=== PATIENT | male | born 1935 | race Caucasian/White ===

== ENCOUNTER 2018-03-23 19:23 | Inpatient (IN) | payer MEDICARE, OTHER, MEDICAID ==
[2018-03-23 20:23] LABS: ADD MAN DIFF? NO
[2018-03-23] MEDS: IPRATROPIUM (NEB) 0.5 MG/2.5 ML AMP INH (20:23)
[2018-03-23] MEDS: ALBUTEROL 0.5% (NEB) 2.5 MG/0.5 ML AMP INH (20:23)
[2018-03-23] MEDS: SODIUM CHLORIDE 0.9% 1L BAG IV* (20:25)
[2018-03-23] MEDS: LEVOFLOXACIN 750MG/D5W (PMX) 150 ML IVPB (20:25)
[2018-03-23 20:27] LABS: ABNORMAL IP MESSAGE 1; BASOPHILS % 0.1 % (0.0-2.0); HEMATOCRIT 31.3 % (42.0-52.0); HEMOGLOBIN 9.9 g/dl (14.0-18.0); LYMPHOCYTES # 0.2 10^3/ul (0.8-2.9); LYMPHOCYTES % 1.2 % (15.0-51.0); MEAN CORPUSCULAR HEMOGLOBIN 31.4 pg (29.0-33.0); MEAN CORPUSCULAR HGB CONC 31.6 g/dl (32.0-37.0); MEAN CORPUSCULAR VOLUME 99.4 fl (82.0-101.0); MEAN PLATELET VOLUME 9.1 fl (7.4-10.4); MONOCYTE # 0.5 10^3/ul (0.3-0.9); MONOCYTES % 2.6 % (0.0-11.0); NEUTROPHIL # 17.8 10^3/ul (1.6-7.5); NEUTROPHILS % 95.6 % (39.0-77.0); PLATELET COUNT 842 10^3/UL (140-415); POSITIVE DIFF @See below; RED BLOOD COUNT 3.15 10^6/ul (4.70-6.10); RED CELL DISTRIBUTION WIDTH 22.5 % (11.5-14.5)
[2018-03-23 20:27] LABS: WHITE BLOOD COUNT 18.6 10^3/ul (4.8-10.8)
[2018-03-23 20:42] LABS: LACTIC ACID 1.9 mmol/L (0.5-2.0)
[2018-03-23 20:44] LABS: ALANINE AMINOTRANSFERASE 17 IU/L (13-69); ALBUMIN 2.6 g/dl (3.3-4.9); ALBUMIN/GLOBULIN RATIO 0.86; ALKALINE PHOSPHATASE 315 IU/L (42-121); AMYLASE 151 U/L (11-123); ANION GAP 14 (8-16); ASPARTATE AMINO TRANSFERASE 24 IU/L (15-46); BILIRUBIN,INDIRECT 0.1 mg/dl (0-1.1); BILIRUBIN,TOTAL 0.1 mg/dl (0.2-1.3); BLOOD UREA NITROGEN 45 mg/dl (7-20); CALCIUM 8.5 mg/dl (8.4-10.2); CARBON DIOXIDE 31 mmol/L (21-31); CHLORIDE 90 mmol/L (97-110); CREATININE 1.53 mg/dl (0.61-1.24); GLUCOSE 112 mg/dl (70-220); LIPASE 32 U/L (23-300); POTASSIUM 3.5 mmol/L (3.5-5.1); SODIUM 131 mmol/L (135-144); TOTAL PROTEIN 5.6 g/dl (6.1-8.1)
[2018-03-23 20:50] LABS: AADO2 Arterial 286.1 mmHg (7.0-24.0); Allen Test ACCEPTAB; Arterial Base Excess 3.9 mmol/L (-3.0-3); Arterial COHb 0.4 % (0.0-3.0); Arterial Fraction of Oxyhgb 97.4 % (93.0-99.0); Arterial HCO3 26.8 mmol/L (22.0-26.0); Arterial MetHb 0.2 % (0.0-1.5); Arterial Total Hemglobin 10.5 g/dl (12.0-18.0); Arterial pCO2 34.1 mmhg (35-45); MODE MASK - SIMPLE; Site Left Radial
[2018-03-23 20:52] LABS: B-TYPE NATRIURETIC PEPTIDE 3480 PG/ML (0-450)
[2018-03-23 20:54] LABS: TROPONIN-I < 0.012 ng/ml (0.000-0.120)
[2018-03-23 21:03] LABS: INR 1.39; PROTIME 17.3 Sec (11.9-14.9); PT RATIO 1.4
[2018-03-23 21:04] LABS: PARTIAL THROMBOPLASTIN TIME 32.8 Sec (23.0-35.0)
[2018-03-23 21:23] LABS: PATH REVIEW Y
[2018-03-23] MEDS: ONDANSETRON 4 MG INJ IV (21:24)
[2018-03-23] MEDS: morphine 2 MG INJ IV (21:24)
[2018-03-23] MEDS: VANCOMYCIN 1 GM (PMX) 250 ML IVPB (21:53)
[2018-03-23 22:46] LABS: LACTIC ACID 1.7 mmol/L (0.5-2.0)
[2018-03-23] MEDS: FUROSEMIDE 40 MG INJ IV (23:19)
[2018-03-23] MEDS ORDERED: MAGNESIUM HYDROXIDE 30ML CUP PO (23:30)
[2018-03-23] MEDS ORDERED: DOCUSATE SODIUM 100 MG CAP PO (23:30)
[2018-03-23] MEDS ORDERED: BISACODYL 10 MG SUPP PR (23:30)
[2018-03-23] MEDS ORDERED: NACL 0.9% 3 ML SYG IV (23:30)
[2018-03-23] MEDS ORDERED: ACETAMINOPHEN 325 MG TAB PO ×2 (23:30)
[2018-03-23] MEDS ORDERED: ONDANSETRON 4 MG INJ IV ×2 (23:30)
[2018-03-24 00:44] LABS: LACTIC ACID 1.4 mmol/L (0.5-2.0)
[2018-03-24] MEDS ORDERED: PENDING SANTYL ORDER FOR WOUND CARE XX (05:00)
[2018-03-24 05:41] LABS: WHITE BLOOD COUNT 18.8 10^3/ul (4.8-10.8)
[2018-03-24 05:41] LABS: ABNORMAL IP MESSAGE 1; HEMATOCRIT 27.9 % (42.0-52.0); HEMOGLOBIN 8.8 g/dl (14.0-18.0); MEAN CORPUSCULAR HEMOGLOBIN 31.5 pg (29.0-33.0); MEAN CORPUSCULAR HGB CONC 31.5 g/dl (32.0-37.0); MEAN PLATELET VOLUME 9.2 fl (7.4-10.4); PLATELET COUNT 647 10^3/UL (140-415); POSITIVE DIFF @See below; RED BLOOD COUNT 2.79 10^6/ul (4.70-6.10); RED CELL DISTRIBUTION WIDTH 22.1 % (11.5-14.5)
[2018-03-24 05:44] LABS: ADD MAN DIFF? YES
[2018-03-24 06:04] LABS: ALANINE AMINOTRANSFERASE 18 IU/L (13-69); ALBUMIN 2.5 g/dl (3.3-4.9); ALKALINE PHOSPHATASE 232 IU/L (42-121); ANION GAP 13 (8-16); ASPARTATE AMINO TRANSFERASE 20 IU/L (15-46); BILIRUBIN,INDIRECT 0.1 mg/dl (0-1.1); BILIRUBIN,TOTAL 0.1 mg/dl (0.2-1.3); BLOOD UREA NITROGEN 44 mg/dl (7-20); CALCIUM 7.9 mg/dl (8.4-10.2); CARBON DIOXIDE 30 mmol/L (21-31); CHLORIDE 95 mmol/L (97-110); CREATININE 1.53 mg/dl (0.61-1.24); GLUCOSE 107 mg/dl (70-220); MAGNESIUM 1.6 mg/dl (1.7-2.5); POTASSIUM 4.2 mmol/L (3.5-5.1); SODIUM 134 mmol/L (135-144)
[2018-03-24] MEDS: FUROSEMIDE 40 MG INJ IV ×2 (06:14→18:13)
[2018-03-24] MEDS: PANTOPRAZOLE (EC) 40 MG TAB PO (06:14)
[2018-03-24 07:11] LABS: ANISOCYTOSIS 2+ (0-0); BAND NEUTROPHILS % (M) 11 % (0-4); LYMPHOCYTES #M 0.1 10^3/ul (0.8-2.9); LYMPHOCYTES % (M) 1 % (15-51); MONOCYTE #M 0.3 10^3/ul (0.3-0.9); MONOCYTES % (M) 2 % (0-11); PLATELET ESTIMATE INCREASED; POLYCHROMASIA 1+ (0-0); SEG NEUT #M 16.5 10^3/ul (1.6-7.5); SEGMENTED NEUTROPHILS (M) % 86 % (39-77); SMUDGE%M 1 % (0-0)
[2018-03-24] MEDS: HEPARIN 5,000 UNIT/0.5 ML VIAL SC (08:22)
[2018-03-24] MEDS ORDERED: NON-FORMULARY/PATIENT OWN MED (Carvedilol* 6.25 MG) PO (09:00)
[2018-03-24] MEDS ORDERED: VANCOMYCIN IV PER PHARMACY XX (11:30)
[2018-03-24] MEDS ORDERED: LEVOFLOXACIN 750MG/D5W (PMX) 150 ML IVPB ×2 (11:30→20:00)
[2018-03-24 14:18] LABS: HAAIG REFLEX REFLEX FILED
[2018-03-24 14:57] LABS: HEPATITIS B SURFACE ANTIGEN NEGATIVE (NEGATIVE)
[2018-03-24 15:15] LABS: HEPATITIS B CORE ANTIBODY NEGATIVE (NEGATIVE); HEPATITIS C VIRAL ANTIBODY NEGATIVE (NEGATIVE)
[2018-03-24] MEDS: VANCOMYCIN 1.25 GM in SOD CHLORIDE 0.9% 250 ML IVPB (18:18)
[2018-03-24] MEDS: TAMSULOSIN (SR) 0.4 MG CAP PO (21:22)
[2018-03-25 05:09] LABS: WHITE BLOOD COUNT 20.1 10^3/ul (4.8-10.8)
[2018-03-25 05:09] LABS: ABNORMAL IP MESSAGE 1; ADD MAN DIFF? NO; BASOPHILS % 0.1 % (0.0-2.0); EOSINOPHILS # 0.1 10^3/ul (0.0-0.5); EOSINOPHILS % 0.3 % (0.0-7.0); HEMATOCRIT 27.4 % (42.0-52.0); HEMOGLOBIN 8.6 g/dl (14.0-18.0); LYMPHOCYTES # 0.2 10^3/ul (0.8-2.9); LYMPHOCYTES % 1.1 % (15.0-51.0); MEAN CORPUSCULAR HEMOGLOBIN 31.4 pg (29.0-33.0); MEAN CORPUSCULAR HGB CONC 31.4 g/dl (32.0-37.0); MEAN PLATELET VOLUME 9.2 fl (7.4-10.4); MONOCYTE # 0.8 10^3/ul (0.3-0.9); MONOCYTES % 3.8 % (0.0-11.0); NEUTROPHIL # 18.9 10^3/ul (1.6-7.5); PLATELET COUNT 691 10^3/UL (140-415); POSITIVE DIFF @See below; RED BLOOD COUNT 2.74 10^6/ul (4.70-6.10); RED CELL DISTRIBUTION WIDTH 21.8 % (11.5-14.5)
[2018-03-25] MEDS: FUROSEMIDE 40 MG INJ IV (05:26)
[2018-03-25] MEDS: PANTOPRAZOLE (EC) 40 MG TAB PO (05:26)
[2018-03-25 05:36] LABS: MAGNESIUM 1.8 mg/dl (1.7-2.5)
[2018-03-25 05:36] LABS: PHOSPHORUS 5.1 mg/dl (2.5-4.9)
[2018-03-25 05:37] LABS: ANION GAP 9 (8-16)
[2018-03-25 05:38] LABS: BLOOD UREA NITROGEN 48 mg/dl (7-20); CALCIUM 7.9 mg/dl (8.4-10.2); CARBON DIOXIDE 32 mmol/L (21-31); CHLORIDE 95 mmol/L (97-110); CREATININE 1.55 mg/dl (0.61-1.24); GLUCOSE 100 mg/dl (70-220); POTASSIUM 3.4 mmol/L (3.5-5.1); SODIUM 133 mmol/L (135-144)
[2018-03-25] MEDS: FOLIC ACID 1 MG TAB PO (08:28)
[2018-03-25] MEDS: DUTASTERIDE 0.5 MG CAP PO (08:28)
[2018-03-25] MEDS: LIDOCAINE 1% (MPF) 5 ML VIAL (12:10)
[2018-03-25] MEDS: POTASSIUM CHLORIDE (SR) 20 MEQ TAB PO (12:50)
[2018-03-25] MEDS: ALBUMIN HUMAN 25% 100 ML IV (12:53)
[2018-03-25 13:25] LABS: FLD TYPE PARACENTHESIS
[2018-03-25 13:26] LABS: FLD CLARITY MILKY; FLD COLOR MILKY
[2018-03-25 13:46] LABS: FLD RBC 0 /uL; FLD WBC 74 /cmm
[2018-03-25 13:48] LABS: FLUID LD 682 U/L; FLUID TYPE PARACENTESIS FLUID
[2018-03-25 13:49] LABS: FLUID TOTAL PROTEIN < 2.0 g/dl
[2018-03-25] MEDS: MAGNESIUM SULFATE 2 GM/50 ML 50 ML IVPB (15:00)
[2018-03-25 17:57] LABS: ADD UMIC YES; UR ASCORBIC ACID NEGATIVE (NEGATIVE); UR BILIRUBIN (Dip) NEGATIVE (NEGATIVE); UR BLOOD (Dip) 1+ mg/dL (NEGATIVE); UR BUDDING YEAST FEW /HPF (NONE SEEN); UR CLARITY SLIGHTLY CLOUDY (CLEAR); UR COLOR YELLOW (YELLOW); UR GLUCOSE (Dip) NEGATIVE (NEGATIVE); UR HYALINE CAST FEW /HPF (NONE SEEN); UR KETONES (Dip) NEGATIVE (NEGATIVE); UR LEUKOCYTE ESTERASE (Dip) 3+ Leu/ul (NEGATIVE); UR NITRITE (Dip) NEGATIVE (NEGATIVE); UR RBC 4 /HPF (0-5); UR SPECIFIC GRAVITY (Dip) 1.011 (1.003-1.030); UR TOTAL PROTEIN (Dip) NEGATIVE (NEGATIVE); UR UROBILINOGEN (Dip) NEGATIVE (NEGATIVE); UR WBC 15 /HPF (0-5)
[2018-03-25] MEDS: VANCOMYCIN 1.25 GM in SOD CHLORIDE 0.9% 250 ML IVPB (18:34)
[2018-03-25] MEDS: TAMSULOSIN (SR) 0.4 MG CAP PO (20:57)
[2018-03-25] MEDS: LEVOFLOXACIN 750MG/D5W (PMX) 150 ML IVPB (20:57)
[2018-03-26 05:34] LABS: ADD MAN DIFF? NO
[2018-03-26 05:42] LABS: ABNORMAL IP MESSAGE 1; BASOPHILS % 0.1 % (0.0-2.0); EOSINOPHILS # 0.1 10^3/ul (0.0-0.5); EOSINOPHILS % 0.2 % (0.0-7.0); HEMATOCRIT 26.7 % (42.0-52.0); HEMOGLOBIN 8.3 g/dl (14.0-18.0); LYMPHOCYTES # 0.2 10^3/ul (0.8-2.9); MEAN CORPUSCULAR HEMOGLOBIN 31.2 pg (29.0-33.0); MEAN CORPUSCULAR HGB CONC 31.1 g/dl (32.0-37.0); MEAN CORPUSCULAR VOLUME 100.4 fl (82.0-101.0); MONOCYTE # 0.7 10^3/ul (0.3-0.9); NEUTROPHIL # 20.3 10^3/ul (1.6-7.5); POSITIVE DIFF @See below; RED BLOOD COUNT 2.66 10^6/ul (4.70-6.10); RED CELL DISTRIBUTION WIDTH 21.6 % (11.5-14.5)
[2018-03-26 05:42] LABS: WHITE BLOOD COUNT 21.4 10^3/ul (4.8-10.8)
[2018-03-26] MEDS: PANTOPRAZOLE (EC) 40 MG TAB PO ×2 (05:46→05:48)
[2018-03-26 05:57] LABS: PHOSPHORUS 4.2 mg/dl (2.5-4.9)
[2018-03-26 05:57] LABS: MAGNESIUM 2.2 mg/dl (1.7-2.5)
[2018-03-26 05:58] LABS: NEUTROPHILS % 95.1 % (39.0-77.0); PLATELET COUNT 696 10^3/UL (140-415)
[2018-03-26 05:59] LABS: LYMPHOCYTES % 0.7 % (15.0-51.0)
[2018-03-26 06:04] LABS: ANION GAP 10 (8-16); BLOOD UREA NITROGEN 45 mg/dl (7-20); CALCIUM 7.8 mg/dl (8.4-10.2); CARBON DIOXIDE 32 mmol/L (21-31); CHLORIDE 93 mmol/L (97-110); CREATININE 1.37 mg/dl (0.61-1.24); GLUCOSE 89 mg/dl (70-220); POTASSIUM 3.3 mmol/L (3.5-5.1); SODIUM 132 mmol/L (135-144)
[2018-03-26] MEDS: DUTASTERIDE 0.5 MG CAP PO (09:01)
[2018-03-26] MEDS: FUROSEMIDE 40 MG INJ IV ×2 (09:02→18:18)
[2018-03-26] MEDS: FOLIC ACID 1 MG TAB PO (09:02)
[2018-03-26] MEDS: POTASSIUM CHLORIDE (SR) 20 MEQ TAB PO (10:08)
[2018-03-26] MEDS: ALBUMIN HUMAN 25% 100 ML IV (17:04)
[2018-03-26] MEDS: VANCOMYCIN 1.25 GM in SOD CHLORIDE 0.9% 250 ML IVPB (18:18)
[2018-03-26] MEDS: TAMSULOSIN (SR) 0.4 MG CAP PO (21:16)
[2018-03-26] MEDS: APIXABAN 5 MG TABLET PO (21:16)
[2018-03-27 05:36] LABS: ADD MAN DIFF? NO
[2018-03-27 05:40] LABS: ABNORMAL IP MESSAGE 1; BASOPHILS % 0.1 % (0.0-2.0); EOSINOPHILS # 0.1 10^3/ul (0.0-0.5); EOSINOPHILS % 0.4 % (0.0-7.0); HEMATOCRIT 26.7 % (42.0-52.0); HEMOGLOBIN 8.3 g/dl (14.0-18.0); LYMPHOCYTES # 0.2 10^3/ul (0.8-2.9); LYMPHOCYTES % 0.9 % (15.0-51.0); MEAN CORPUSCULAR HEMOGLOBIN 31.2 pg (29.0-33.0); MEAN CORPUSCULAR HGB CONC 31.1 g/dl (32.0-37.0); MEAN CORPUSCULAR VOLUME 100.4 fl (82.0-101.0); MONOCYTE # 0.7 10^3/ul (0.3-0.9); MONOCYTES % 3.5 % (0.0-11.0); NEUTROPHIL # 18.4 10^3/ul (1.6-7.5); NEUTROPHILS % 93.4 % (39.0-77.0); PLATELET COUNT 626 10^3/UL (140-415); POSITIVE DIFF @See below; RED BLOOD COUNT 2.66 10^6/ul (4.70-6.10); RED CELL DISTRIBUTION WIDTH 21.3 % (11.5-14.5)
[2018-03-27 05:40] LABS: WHITE BLOOD COUNT 19.7 10^3/ul (4.8-10.8)
[2018-03-27] MEDS: PANTOPRAZOLE (EC) 40 MG TAB PO (05:47)
[2018-03-27 06:04] LABS: PHOSPHORUS 3.2 mg/dl (2.5-4.9)
[2018-03-27 06:05] LABS: ANION GAP 8 (8-16); BLOOD UREA NITROGEN 48 mg/dl (7-20); CALCIUM 7.9 mg/dl (8.4-10.2); CARBON DIOXIDE 34 mmol/L (21-31); CHLORIDE 97 mmol/L (97-110); CREATININE 1.29 mg/dl (0.61-1.24); GLUCOSE 99 mg/dl (70-220); POTASSIUM 3.4 mmol/L (3.5-5.1); SODIUM 136 mmol/L (135-144)
[2018-03-27 07:11] LABS: PATH REVIEW? YES
[2018-03-27] MEDS: APIXABAN 5 MG TABLET PO ×2 (08:46→20:07)
[2018-03-27] MEDS: DUTASTERIDE 0.5 MG CAP PO (08:46)
[2018-03-27] MEDS: FOLIC ACID 1 MG TAB PO (08:46)
[2018-03-27] MEDS: FUROSEMIDE 40 MG INJ IV (08:46)
[2018-03-27] MEDS: FLUCONAZOLE 200 MG (PMX) 100 ML IVPB ×2 (11:30→14:08)
[2018-03-27] MEDS: POTASSIUM CHLORIDE (SR) 20 MEQ TAB PO (11:37)
[2018-03-27] MEDS: ALBUMIN HUMAN 25% 100 ML IV (11:39)
[2018-03-27] MEDS: TAMSULOSIN (SR) 0.4 MG CAP PO (20:07)
[2018-03-27] MEDS: LEVOFLOXACIN 750MG/D5W (PMX) 150 ML IVPB (20:07)
[2018-03-28] MEDS: PANTOPRAZOLE (EC) 40 MG TAB PO (05:39)
[2018-03-28 06:12] LABS: ADD MAN DIFF? NO
[2018-03-28 06:23] LABS: WHITE BLOOD COUNT 20.2 10^3/ul (4.8-10.8)
[2018-03-28 06:23] LABS: ABNORMAL IP MESSAGE 1; BASOPHILS % 0.1 % (0.0-2.0); EOSINOPHILS # 0.1 10^3/ul (0.0-0.5); EOSINOPHILS % 0.2 % (0.0-7.0); HEMATOCRIT 26.5 % (42.0-52.0); HEMOGLOBIN 8.1 g/dl (14.0-18.0); LYMPHOCYTES # 0.3 10^3/ul (0.8-2.9); LYMPHOCYTES % 1.2 % (15.0-51.0); MEAN CORPUSCULAR HGB CONC 30.6 g/dl (32.0-37.0); MEAN CORPUSCULAR VOLUME 101.5 fl (82.0-101.0); MEAN PLATELET VOLUME 9.1 fl (7.4-10.4); MONOCYTE # 0.8 10^3/ul (0.3-0.9); MONOCYTES % 4.1 % (0.0-11.0); NEUTROPHIL # 18.8 10^3/ul (1.6-7.5); NEUTROPHILS % 92.9 % (39.0-77.0); PLATELET COUNT 581 10^3/UL (140-415); POSITIVE DIFF @See below; RED BLOOD COUNT 2.61 10^6/ul (4.70-6.10); RED CELL DISTRIBUTION WIDTH 21.2 % (11.5-14.5)
[2018-03-28 06:48] LABS: PHOSPHORUS 2.8 mg/dl (2.5-4.9)
[2018-03-28 07:09] LABS: ALANINE AMINOTRANSFERASE 18 IU/L (13-69); ALKALINE PHOSPHATASE 129 IU/L (42-121); ANION GAP 8 (8-16); ASPARTATE AMINO TRANSFERASE 22 IU/L (15-46); BILIRUBIN,INDIRECT 0.1 mg/dl (0-1.1); BILIRUBIN,TOTAL 0.1 mg/dl (0.2-1.3); BLOOD UREA NITROGEN 42 mg/dl (7-20); CARBON DIOXIDE 35 mmol/L (21-31); CHLORIDE 95 mmol/L (97-110); CREATININE 1.05 mg/dl (0.61-1.24); GLUCOSE 87 mg/dl (70-220); POTASSIUM 3.3 mmol/L (3.5-5.1); SODIUM 135 mmol/L (135-144); TOTAL PROTEIN 4.2 g/dl (6.1-8.1)
[2018-03-28] MEDS: FUROSEMIDE 40 MG INJ IV ×2 (08:52→18:16)
[2018-03-28] MEDS: FLUCONAZOLE 100 MG TAB PO (08:52)
[2018-03-28] MEDS: APIXABAN 5 MG TABLET PO ×2 (08:52→21:19)
[2018-03-28] MEDS: FOLIC ACID 1 MG TAB PO (08:52)
[2018-03-28] MEDS: DUTASTERIDE 0.5 MG CAP PO (08:52)
[2018-03-28] MEDS: POTASSIUM CHLORIDE (SR) 20 MEQ TAB PO (11:12)
[2018-03-28] MEDS ORDERED: COLLAGENASE 5 GM (UD JAR) TOP (12:00)
[2018-03-28] MEDS: ALBUMIN HUMAN 25% 100 ML IV (18:16)
[2018-03-28] MEDS: TAMSULOSIN (SR) 0.4 MG CAP PO (21:19)
[2018-03-29] MEDS: PANTOPRAZOLE (EC) 40 MG TAB PO (06:02)
[2018-03-29 06:12] LABS: ADD MAN DIFF? NO
[2018-03-29 06:16] LABS: ABNORMAL IP MESSAGE 1; BASOPHIL # 0.1 10^3/ul (0.0-0.1); BASOPHILS % 0.2 % (0.0-2.0); EOSINOPHILS # 0.1 10^3/ul (0.0-0.5); EOSINOPHILS % 0.3 % (0.0-7.0); HEMATOCRIT 28.2 % (42.0-52.0); HEMOGLOBIN 8.6 g/dl (14.0-18.0); LYMPHOCYTES # 0.3 10^3/ul (0.8-2.9); LYMPHOCYTES % 1.2 % (15.0-51.0); MEAN CORPUSCULAR HEMOGLOBIN 31.6 pg (29.0-33.0); MEAN CORPUSCULAR HGB CONC 30.5 g/dl (32.0-37.0); MEAN CORPUSCULAR VOLUME 103.7 fl (82.0-101.0); MEAN PLATELET VOLUME 8.8 fl (7.4-10.4); MONOCYTE # 0.8 10^3/ul (0.3-0.9); MONOCYTES % 3.6 % (0.0-11.0); NEUTROPHIL # 20.5 10^3/ul (1.6-7.5); NEUTROPHILS % 93.7 % (39.0-77.0); PLATELET COUNT 573 10^3/UL (140-415); POSITIVE DIFF @See below; RED BLOOD COUNT 2.72 10^6/ul (4.70-6.10); RED CELL DISTRIBUTION WIDTH 20.7 % (11.5-14.5)
[2018-03-29 06:16] LABS: WHITE BLOOD COUNT 21.9 10^3/ul (4.8-10.8)
[2018-03-29 06:37] LABS: PHOSPHORUS 3.1 mg/dl (2.5-4.9)
[2018-03-29 06:43] LABS: ALANINE AMINOTRANSFERASE 22 IU/L (13-69); ALBUMIN 2.3 g/dl (3.3-4.9); ALKALINE PHOSPHATASE 124 IU/L (42-121); ANION GAP 9 (8-16); ASPARTATE AMINO TRANSFERASE 25 IU/L (15-46); BILIRUBIN,INDIRECT 0.2 mg/dl (0-1.1); BILIRUBIN,TOTAL 0.2 mg/dl (0.2-1.3); BLOOD UREA NITROGEN 42 mg/dl (7-20); CALCIUM 8.5 mg/dl (8.4-10.2); CARBON DIOXIDE 34 mmol/L (21-31); CHLORIDE 97 mmol/L (97-110); CREATININE 0.93 mg/dl (0.61-1.24); GLUCOSE 94 mg/dl (70-220); POTASSIUM 4.2 mmol/L (3.5-5.1); SODIUM 136 mmol/L (135-144); TOTAL PROTEIN 4.6 g/dl (6.1-8.1)
[2018-03-29] MEDS: FUROSEMIDE 40 MG INJ IV (09:00)
[2018-03-29] MEDS: COLLAGENASE 5 GM (UD JAR) TOP (09:23)
[2018-03-29] MEDS: FLUCONAZOLE 100 MG TAB PO ×2 (09:24→14:23)
[2018-03-29] MEDS: APIXABAN 5 MG TABLET PO (09:24)
[2018-03-29] MEDS: DUTASTERIDE 0.5 MG CAP PO (09:24)
[2018-03-29] MEDS: FOLIC ACID 1 MG TAB PO (09:24)
[2018-03-29] MEDS: LEVOFLOXACIN 750 MG TABLET PO (09:24)
[2018-03-29] MEDS: FUROSEMIDE 40 MG TAB PO (14:23)
== END 2018-03-29 15:40 | disposition home health service (06) | DRG 814 ==
LOC: 6WM 23:18 → E/R 19:23
PROC: 0W9G3ZZ Drainage of Peritoneal Cavity, Percutaneous Approach (ICD-10-PCS; principal; 2018-03-25)
DX: I89.8 Other specified noninfective disorders of lymphatic vessels and lymph nodes (principal); J18.9 Pneumonia, unspecified organism; N17.9 Acute kidney failure, unspecified; I82.592 Chronic embolism and thrombosis of other specified deep vein of left lower extremity; C85.90 Non-Hodgkin lymphoma, unspecified, unspecified site; B37.49 Other urogenital candidiasis; D63.8 Anemia in other chronic diseases classified elsewhere; K74.69 Other cirrhosis of liver; N18.9 Chronic kidney disease, unspecified; Z79.02 Long term (current) use of antithrombotics/antiplatelets
CPT/HCPCS: 36600; 71045; 71250; 74176; 76705; 80048; 80053; 81001; 82042; 82150; 82803; 83605; 83615; 83690; 83735; 83880; 84100; 84157; 84484; 85025; 85610; 85730; 86704; 86709; 86803; 86850; 86900; 86901; 87040; 87070; 87081; 87086; 87102; 87116; 87340; 88104; 88305; 89051; 93005; 93306; 93970; 94644; 96365; 96375; 97116; 97162; 97530; 99291-25